=== PATIENT | male | born 1945 | race Caucasian/White ===

== ENCOUNTER 2019-04-14 12:41 | Emergency (ER) | payer OTHER ==
[~2019-04-14] VITALS: Ht 172.7 cm; Wt 95.3 kg
[~2019-04-14 12:41] MED LIST: ASA81 MG; BENICAR20 MG; LIPO-FLAVONOID1 EACH PO
[2019-04-14] MEDS ORDERED: BENICAR20 MG PO (12:56)
[2019-04-14] MEDS ORDERED: TRIGLIDE160 MG PO (12:56)
== END 2019-04-14 20:03 | disposition home or self-care (01) ==
LOC: ER 12:41
DX: I95.89 Other hypotension (principal); R42 Dizziness and giddiness; R53.1 Weakness